=== PATIENT | male | born 1940 | race Caucasian/White ===

== ENCOUNTER 2017-04-05 11:03 | Inpatient (IN) | payer OTHER, BC ==
[~2017-04-05] VITALS: Ht 177.8 cm; Wt 87.0 kg
[2017-04-05] VITALS (7 sets, daily range): BP systolic 130–169; BP diastolic 54–78
[~2017-04-05 11:03] MED LIST: ALTACE10 MG PO; ASPIRIN325 MG PO; METOPROLOL TART75 MG PO; MULTI-DAY VITA1 EACH PO; NEXIUM40 MG PO; PRAVACHOL80 MG PO; VIAGRA100 MG PO; WELCHOL625 MG PO; ZETIA10 MG PO
[2017-04-05 11:58] LABS: HEMATOCRIT 42.7 % (38.0-50.0); HEMOGLOBIN 14.1 G/DL (12.5-16.6); MCH 31.6 PG (29.0-34.0); MCV 95.7 FL (86-99); PLATELET COUNT 172 K/uL (156-360); RBC DIS.WIDTH-CV 12.7 % (11.8-14.6); RBC DIS.WIDTH-SD 45.1 % (39-53); RED BLOOD COUNT 4.46 M/uL (4.00-5.50); WHITE BLOOD COUNT 9.3 K/uL (4.1-10.2)
[2017-04-05 12:06] LABS: ALBUMIN 4.1 g/dL (3.2-4.8); CHLORIDE 109 mEq/L (99-109); POTASSIUM 4.9 mEq/L (3.7-5.4); SODIUM 141 mEq/L (136-147)
[2017-04-05 12:08] LABS: GLUCOSE 111 mg/dL (70-99)
[2017-04-05 12:10] LABS: TOTAL BILIRUBIN 0.6 mg/dL (0.0-1.0)
[2017-04-05 12:12] LABS: ALKALINE PHOSPHATASE 56 IU/L (3-129); CREATININE 1.2 mg/dL (0.6-1.3); GFR ESTIMATE (CALCULATED) > 59 mL/min/ (58.99-99999)
[2017-04-05 12:13] LABS: UREA NITROGEN (BUN) 19 mg/dL (9-23)
[2017-04-05 12:14] LABS: AST (GOT) 32 IU/L (2-34)
[2017-04-05 12:15] LABS: ALT (GPT) 49 IU/L (3-49)
[2017-04-05 12:18] LABS: TROP-I INTERPRETATION NEGATIVE; TROPONIN-I < 0.01 ng/mL (0.0-0.30)
[2017-04-05] MEDS ORDERED: METOPROLOL TART75 MG PO (13:25)
[2017-04-05] MEDS ORDERED: ASPIRIN81 M2 PO (13:28)
[2017-04-05] MEDS ORDERED: ADVIL200 MG PO (13:30)
[2017-04-05] MEDS ORDERED: DIMENHYDRINATE50 MG PO (13:30)
[2017-04-05] MEDS ORDERED: KRILL OIL500 MG PO (13:32)
[2017-04-05] MEDS ORDERED: CO Q-10200 MG PO (13:32)
[2017-04-05 13:55] LABS: THYROTROPIN (TSH) 7.4 MIU/L (0.4-5.5)
[2017-04-05 18:28] LABS: TROP-I INTERPRETATION NEGATIVE; TROPONIN-I < 0.01 ng/mL (0.0-0.30)
[2017-04-06] VITALS (13 sets, daily range): BP systolic 113–181; BP diastolic 54–96
[2017-04-06 06:32] LABS: HEMATOCRIT 39.3 % (38.0-50.0); HEMOGLOBIN 12.8 G/DL (12.5-16.6); MCH 30.9 PG (29.0-34.0); MCHC 32.6 G/DL (30.0-36.0); MCV 94.9 FL (86-99); PLATELET COUNT 176 K/uL (156-360); RBC DIS.WIDTH-CV 12.7 % (11.8-14.6); RBC DIS.WIDTH-SD 44.5 % (39-53); RED BLOOD COUNT 4.14 M/uL (4.00-5.50); WHITE BLOOD COUNT 9.2 K/uL (4.1-10.2)
[2017-04-06 06:57] LABS: TROP-I INTERPRETATION NEGATIVE; TROPONIN-I < 0.01 ng/mL (0.0-0.30)
[2017-04-07] VITALS: BP 133/59
[2017-04-07 04:00] VITALS: BP 126/58
[2017-04-07 06:31] LABS: CHLORIDE 105 MEQ/L (99-109); CREATININE 1.2 MG/DL (0.6-1.3); GFR ESTIMATE (CALCULATED) > 59 mL/min/ (58.99-99999); GLUCOSE 124 mg/dL (70-99); POTASSIUM 4.2 MEQ/L (3.7-5.4); SODIUM 140 MEQ/L (136-147); UREA NITROGEN (BUN) 19 mg/dL (9-23)
[2017-04-07 08:00] VITALS: BP 135/54
[2017-04-07 12:00] VITALS: BP 126/63
[2017-04-07 16:00] VITALS: BP 127/57
[2017-04-07 20:00] VITALS: BP 126/54
[2017-04-08] VITALS (7 sets, daily range): BP systolic 0–154; BP diastolic 0–69
[2017-04-09] VITALS (7 sets, daily range): BP systolic 114–141; BP diastolic 49–87
[2017-04-09 06:03] LABS: INTER. NORMALIZED RATIO 1.1
[2017-04-09 06:05] LABS: PTT 26.8 SEC (25-37)
[2017-04-09 06:45] LABS: CHLORIDE 104 MEQ/L (99-109); CREATININE 1.1 MG/DL (0.6-1.3); GFR ESTIMATE (CALCULATED) > 59 mL/min/ (58.99-99999); GLUCOSE 128 mg/dL (70-99); POTASSIUM 4.3 MEQ/L (3.7-5.4); SODIUM 139 MEQ/L (136-147); UREA NITROGEN (BUN) 18 mg/dL (9-23)
[2017-04-10] VITALS: BP 118/61
[2017-04-10 04:00] VITALS: BP 110/62
[2017-04-10 07:00] VITALS: BP 120/67
[2017-04-10 09:42] LABS: HEMATOCRIT 41.3 % (38.0-50.0); HEMOGLOBIN 13.5 G/DL (12.5-16.6); MCH 30.6 PG (29.0-34.0); MCHC 32.7 G/DL (30.0-36.0); MCV 93.7 FL (86-99); PLATELET COUNT 160 K/uL (156-360); RBC DIS.WIDTH-CV 12.8 % (11.8-14.6); RBC DIS.WIDTH-SD 44.6 % (39-53); RED BLOOD COUNT 4.41 M/uL (4.00-5.50); WHITE BLOOD COUNT 12.7 K/uL (4.1-10.2)
[2017-04-10 10:00] VITALS: BP 111/58
[2017-04-10 10:13] LABS: CHLORIDE 101 MEQ/L (99-109); GFR ESTIMATE (CALCULATED) > 59 mL/min/ (58.99-99999); GLUCOSE 165 mg/dL (70-99); POTASSIUM 4.4 MEQ/L (3.7-5.4); SODIUM 135 MEQ/L (136-147); UREA NITROGEN (BUN) 19 mg/dL (9-23)
== END 2017-04-10 14:15 | disposition home or self-care (01) | DRG 244 ==
LOC: EME 11:03 → EDOF 12:38 → 4WEST 12:38 → ENRESERV 12:41 → 4EAST 14:49 → ENRESERV 17:23 → 4WEST 19:07 → CANRESERV 04-06 15:50 → ENRESERV 04-06 15:50 → 4WEST 04-09 16:49 → ENRESERV 04-09 17:53 → CANRESERV 04-10 01:05 → ENRESERV 04-10 01:13 → 4WEST 04-10 14:15
PROVIDERS: Emergency Medicine Emergency Medical Services; Family Medicine; Internal Medicine; Internal Medicine Cardiovascular Disease
DX: I44.2 Atrioventricular block, complete (principal); R00.1 Bradycardia, unspecified; E78.5 Hyperlipidemia, unspecified; I48.91 Unspecified atrial fibrillation; I25.10 Atherosclerotic heart disease of native coronary artery without angina pectoris; T44.7X1A Poisoning by beta-adrenoreceptor antagonists, accidental (unintentional), initial encounter; I35.2 Nonrheumatic aortic (valve) stenosis with insufficiency; Z85.46 Personal history of malignant neoplasm of prostate; I10 Essential (primary) hypertension; Z95.2 Presence of prosthetic heart valve; Z95.0 Presence of cardiac pacemaker; Z82.49 Family history of ischemic heart disease and other diseases of the circulatory system; Z95.5 Presence of coronary angioplasty implant and graft; K21.9 Gastro-esophageal reflux disease without esophagitis; I45.2 Bifascicular block
CPT/HCPCS: 71020; 71045; 80048; 80053; 82948; 83880; 84443; 84484; 85027; 85610; 85730; 87641; 93005; 99281; 99285; C1785; C1892; C1894; C1898; J0690; J1200; J1650; J2250; J3010; J7120; S0020

== ENCOUNTER 2017-11-02 18:40 | Emergency (ER) | payer OTHER, BC ==
[~2017-11-02] VITALS: Ht 177.8 cm; Wt 86.3 kg
[~2017-11-02 18:40] MED LIST changes: +ADVIL200 MG PO; +ASPIRIN81 M2 PO; +CO Q-10200 MG PO; +DIMENHYDRINATE50 MG PO; +KRILL OIL500 MG PO
[2017-11-02 20:38] LABS: HEMATOCRIT 33.8 % (38.0-50.0); HEMOGLOBIN 11.5 G/DL (12.5-16.6); MCH 31.9 PG (29.0-34.0); MCV 93.9 FL (86-99); PLATELET COUNT 136 K/uL (156-360); RBC DIS.WIDTH-CV 13.2 % (11.8-14.6); RBC DIS.WIDTH-SD 45.5 % (39-53); WHITE BLOOD COUNT 16.1 K/uL (4.1-10.2)
[2017-11-02 20:46] LABS: INTER. NORMALIZED RATIO 1.1
[2017-11-02 20:54] LABS: ALBUMIN 4.2 g/dL (3.2-4.8); CHLORIDE 107 mEq/L (99-109); POTASSIUM 4.4 mEq/L (3.7-5.4); SODIUM 141 mEq/L (136-147)
[2017-11-02 20:56] LABS: GLUCOSE 122 mg/dL (70-99); TOTAL PROTEIN 7.1 g/dL (6.4-8.3)
[2017-11-02 20:58] LABS: TOTAL BILIRUBIN 0.6 mg/dL (0.0-1.0)
[2017-11-02 21:00] LABS: ALKALINE PHOSPHATASE 51 IU/L (3-129); GFR ESTIMATE (CALCULATED) > 59 mL/min/ (58.99-99999)
[2017-11-02 21:01] LABS: UREA NITROGEN (BUN) 16 mg/dL (9-23)
[2017-11-02 21:02] LABS: AST (GOT) 25 IU/L (2-34)
[2017-11-02 21:03] LABS: ALT (GPT) 32 IU/L (3-49)
[2017-11-02] MEDS ORDERED: KEFLEX500 MG PO (22:31)
[2017-11-02 23:07] VITALS: BP 144/72
== END 2017-11-02 23:07 | disposition home or self-care (01) ==
LOC: EME 18:40
PROVIDERS: Physician Assistant
DX: L03.313 Cellulitis of chest wall (principal); Z95.0 Presence of cardiac pacemaker; Z95.2 Presence of prosthetic heart valve; Z95.5 Presence of coronary angioplasty implant and graft; R11.0 Nausea; I10 Essential (primary) hypertension; E78.5 Hyperlipidemia, unspecified; Z79.82 Long term (current) use of aspirin; Z85.46 Personal history of malignant neoplasm of prostate; Z90.79 Acquired absence of other genital organ(s)
CPT/HCPCS: 71260; 80053; 83605; 85027; 85610; 87040; 99281; 99284